=== PATIENT | female | born 1995 | race African-American/Black ===

== ENCOUNTER 2016-10-16 08:41 | Inpatient (IN) ==
[2016-10-16] MEDS ORDERED: BUTORPHANOL 2 MG/ML VIAL IV PRN (08:59)
[2016-10-16] MEDS ORDERED: ONDANSETRON 4 MG/2 ML VIAL IV PRN (08:59)
[2016-10-16] MEDS ORDERED: MEPERIDINE 50 MG/1 ML VIAL IV PRN (08:59)
[2016-10-16] MEDS ORDERED: AMPICILLIN INJ 2,000 MG in SODIUM CHLORIDE 0.9% 100 ML IV ONE (09:23)
[2016-10-16 09:27] LABS: Basophils % 0.2 % (0.0-0.8); Eosinophils % 0.8 % (0.00-10.9); Hematocrit 33.7 VOL% (35.7-47.0); Hemoglobin 10.6 GM/DL (12.0-16.0); Immature Granulocytes % 0.4 %; Immature Granulocytes Absolute 0.02 #; Lymphocytes # 1.5 10*3/uL (1.4-4.0); Lymphocytes % 29.9 % (21.3-54.2); Mean Corpuscular HGB Conc 31.5 GM/DL (32-36); Mean Corpuscular Hemoglobin 25 PG (27-34); Mean Corpuscular Volume 78.6 FL (87-102); Monocytes # 0.4 10*3/uL (0.11-0.8); Monocytes % 7.1 % (1.7-12.7); Neutrophils # 3.1 10*3/uL (1.4-7.4); Neutrophils % 61.6 % (38.7-73.9); Platelet Count 169 T/CUMM (130-400); Red Blood Count 4.29 MC/CUMM (3.8-5.5); Red Cell Distribution Width 14.4 % (9.3-17.3); White Blood Count 5.1 T/CUMM (4-12)
[2016-10-16] MEDS ORDERED: AMPICILLIN INJ 1,000 MG in SODIUM CHLORIDE 0.9% 100 ML IV SCH (09:30)
[2016-10-16] MEDS ORDERED: LACTATED RINGERS 1,000 ML IV SCH (09:30)
[2016-10-16] MEDS ORDERED: OXYTOCIN/LR 20 UNIT/1,000 ML BAG IV SCH (09:30)
[2016-10-16] MEDS ORDERED: LACTATED RINGERS 1,000 ML IV ONE (09:30)
--- NOTE | 2016-10-16 09:38 | OB/GYN History & Physical ---
History of Present Illness Chief complaint: Spontaneous rupture membranes at 34 weeks gestation History of present illness: Ms. Payne is a 20 year old female Patient with a known history of diabetes being treated with insulin therapy, and also labor with Procardia, who presents with spontaneous rupture membranes at 35 weeks gestation. Patient's physical exam demonstrated cervical dilatation at approximately 4 cm dilated. In light of these findings patient was placed on IV ampicillin, IV Pitocin, and also no desire for an epidural anesthetic. Risks and benefits were thoroughly discussed nursery has been notified. Home Medications Medication Instructions Recorded Confirmed Type Formula Tablet 1 tablet PO DAILY 08/28/15 10/08/16 History Insulin NPH [HumuLIN N] 10 units SUBCUT AC BREAKFAST 10/08/16 10/08/16 History Insulin NPH [HumuLIN N] 10 units SUBCUT AC SUPPER 10/08/16 10/08/16 History NIFEdipine CAP [Procardia] 1 capsule PO Q6HR 10/08/16 10/08/16 History Allergies Allergy/AdvReac Type Severity Reaction Status Date / Time No Known Allergies Allergy Verified 10/08/16 10:54 Medical,Surgical,& Family Hx - Medical History Endocrine: Comment Only: Diabetes Mellitus (IDDM) (gestational diabetic with both pregnancies) Reproductive: History of: Complication (gestational diabetes with last ) No history of: Ectopic - Family History Family History: Reports;: Family Diabetes (Mother, father, MGM), Family Hypertension (Mother, MGF) - Social History Smoking Status: Never smoker Exam CLINICAL RESEARCH SCIENTIST - Constitutional General appearance: no acute distress - Antepartum / Post Antepartum Exam Cervix -Dilatation: 4 cm, 70%, -2 station - Head Head exam: Present: normal inspection - Eye Eye exam: Present: EOMI Pupils: Present: DG - ENT ENT exam: Present: normal exam - Neck Neck exam: Present: normal inspection - Respiratory Respiratory exam: Present: clear to auscultation bilaterally - Breast Breasts: as per HPI Menstruation: as per HPI - Cardiovascular Cardiovascular exam: Present: regular rate and rhythm - GI/Abdominal GI/Abdominal exam: Present: normal bowel sounds - Extremities Exam Extremities exam: Present: normal inspection - Back Exam Back exam: Present: normal inspection - Neurological Exam Neurological exam: Present: alert, oriented X3 - Psychiatric Psychiatric exam: Present: normal affect - Skin Skin exam: Present: normal color Assessment and Plan (1) Premature rupture of membranes Status: Acute Assessment and plan: Insulin-dependent diabetic, premature rupture membranes, at 35 weeks gestation in active labor will plan on vaginal risks benefits were thoroughly discussed she is in full agreement Current Visit: No Results - Labs CBC & BMP: 10/16/16 09:20
[2016-10-16 11:17] LABS: Alanine Aminotransferase 12 U/L (13-56); Albumin 2.5 G/DL (3.4-5.0); Alkaline Phosphatase 146 U/L (45-117); Aspartate Amino Transferase 11 U/L (0-37); Bilirubin,Total < 0.39 MG/DL (0.2-1.0); Blood Urea Nitrogen 11 MG/DL (7-18); Calcium 8.7 MG/DL (8.5-10.1); Glucose 277 MG/DL (74-106); Potassium 4.2 MMOL/L (3.5-5.1); Sodium 136 MMOL/L (136-145); Total Protein 5.9 G/DL (6.4-8.3); Uric Acid 5.4 MG/DL (2.6-6.0)
[2016-10-16] MEDS ORDERED: INSULIN LISPRO 100 UNIT/ML SUBCUT PRN (12:37)
--- NOTE | 2016-10-16 14:13 | Event Note ---
HPI Ms. Payne is a 20-year-old that presented to the labor department with spontaneous rupture membranes at 35 weeks. In light of these findings the patient was admitted for management of early labor and rupture of membranes. Stage I: Patient was admitted she received IV fluids and IV Pitocin per protocol. She also received IV antibiotics prophylactically. She had an uneventful course of labor. Her blood sugars were monitored during labor due to diabetes. She maintained a CAT 1 tracing. The patient did not receive an epidural she only received IV pain medicines for pain control. Stage II: the patient was complete, the nares called the provider at 1339 and stated that the patient was complete prior to this report there was a report that the patient was 5 cm upon arrival to the hospital at 1345 the patient had already delivered with the nurse in attendance at 1343 a viable male . weight was 6 pounds and 12 ounces. Apgars were 9 at 1 minute and 9 at 5 minutes. A cord pH was obtained and sent to the lab. Stage III: A spontaneous delivery of a Earl placenta with a three-vessel cord noted. The placenta was further examined and appear to be grossly intact. The vagina cervix was inspected with no tears or lacerations noted, estimated blood loss was approximately 150 cc. The placenta was sent to pathology due to delivery, spontaneous rupture membranes, insulin dependent diabetes, and hypertension. At the time of dictation mother and baby are both in stable condition
[2016-10-16] MEDS ORDERED: MEASLES/MUMPS/RUBELLA VACCINE 0.5 ML VIAL SUBCUT ONE (14:14)
[2016-10-16] MEDS ORDERED: ACETAMINOPHEN 325 MG TABLET PO PRN (14:14)
[2016-10-16] MEDS ORDERED: OXYTOCIN/LR 20 UNIT/1,000 ML BAG IV ONE (14:14)
[2016-10-16] MEDS ORDERED: BENZOCAINE 20%/MENTHOL 0.5% SPRAY 56 GM CAN TOP PRN (14:14)
[2016-10-16] MEDS ORDERED: LANOLIN 50% CREAM 0.3 OZ TUBE TOP PRN (14:14)
[2016-10-16] MEDS ORDERED: BISACODYL 10 MG SUPP RECTAL PRN (14:14)
[2016-10-16] MEDS ORDERED: HYDROCORTISONE 2.5% RECTAL CREAM 30 GM TUBE TOP PRN (14:14)
[2016-10-16] MEDS ORDERED: WITCH HAZEL PADS 100/JAR TOP PRN (14:14)
[2016-10-16] MEDS ORDERED: RHO(D) IMMUNE GLOBULIN 300 MCG SYRINGE IM ONE (14:14)
[2016-10-16] MEDS ORDERED: DIPH/TET/ACEL PERT BOOSTER VACCINE 0.5 ML VIAL IM ONE (14:14)
[2016-10-16] MEDS ORDERED: ACETAMINOPHEN/CODEINE 300-30 MG TABLET PO PRN (14:16)
[2016-10-16] MEDS: oxyCODONE/ACETAMINOPHEN 5-325 MG TABLET PO PRN ×2 (16:28→22:21)
[2016-10-16] MEDS: IBUPROFEN 800 MG TABLET PO PRN ×2 (16:28→22:21)
[2016-10-16] MEDS ORDERED: DEXTROSE 50% 25 GM/50 ML VIAL IV PRN (17:32)
[2016-10-16] MEDS ORDERED: GLUCAGON 1 MG VIAL IM PRN (17:32)
[2016-10-16] MEDS: INSULIN NPH 100 UNIT/ML SUBCUT SCH (17:44)
[2016-10-16] MEDS: INSULIN REGULAR 100 UNIT/ML SUBCUT SCH (20:09)
[2016-10-16] MEDS: DOCUSATE SODIUM 100 MG CAPSULE PO SCH (22:00)
[2016-10-17 06:22] LABS: Basophils % 0.2 % (0.0-0.8); Eosinophils # 0.1 10*3/uL (0.0-0.87); Eosinophils % 0.7 % (0.00-10.9); Hematocrit 32.4 VOL% (35.7-47.0); Immature Granulocytes % 0.6 %; Immature Granulocytes Absolute 0.05 #; Lymphocytes # 2.3 10*3/uL (1.4-4.0); Lymphocytes % 25.8 % (21.3-54.2); Mean Corpuscular HGB Conc 30.9 GM/DL (32-36); Mean Corpuscular Hemoglobin 25 PG (27-34); Mean Corpuscular Volume 79.4 FL (87-102); Mean Platelet Volume 11.3 FL (9.6-12.0); Monocytes # 0.7 10*3/uL (0.11-0.8); Monocytes % 7.7 % (1.7-12.7); Neutrophils # 5.9 10*3/uL (1.4-7.4); Platelet Count 158 T/CUMM (130-400); Red Blood Count 4.08 MC/CUMM (3.8-5.5); Red Cell Distribution Width 14.3 % (9.3-17.3); White Blood Count 9.1 T/CUMM (4-12)
[2016-10-17] MEDS: DOCUSATE SODIUM 100 MG CAPSULE PO SCH ×2 (09:01→20:35)
[2016-10-17] MEDS: INSULIN NPH 100 UNIT/ML SUBCUT SCH ×2 (09:01→16:44)
[2016-10-17] MEDS: IBUPROFEN 800 MG TABLET PO PRN (09:01)
[2016-10-17] MEDS: INSULIN REGULAR 100 UNIT/ML SUBCUT SCH ×3 (09:01→15:54)
[2016-10-17] MEDS: oxyCODONE/ACETAMINOPHEN 5-325 MG TABLET PO PRN (09:02)
--- NOTE | 2016-10-17 16:02 | OB/GYN Progress Note ---
Assessment and Plan (1) Premature rupture of membranes Status: Acute Current Visit: No (2) delivery Status: Acute Assessment and plan: Initiate routine orders. 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 Bonding well with . 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 - Constitutional Vitals: Vital Signs Temp Pulse Resp BP Pulse Ox 10/17/16 15:56 97.2 F L 75 19 113/71 98 10/17/16 12:00 98.1 F 98 H 18 126/84 99 10/17/16 07:33 98.0 F 74 17 101/60 98 10/17/16 06:00 20 10/17/16 04:00 97.2 F L 88 18 108/67 99 10/17/16 01:42 20 10/17/16 00:00 96.4 F L 59 L 18 108/65 99 10/16/16 20:00 96.4 F L 59 L 18 108/65 99 10/16/16 18:30 65 20 129/77 98 10/16/16 18:00 20 10/16/16 17:30 77 20 124/71 98 10/16/16 16:30 59 L 18 122/77 98 General appearance: no acute distress - Head Head exam: Present: normal inspection - Respiratory Respiratory exam: Present: clear to auscultation bilaterally - Cardiovascular Cardiovascular exam: Present: regular rate and rhythm - GI/Abdominal GI/Abdominal exam: Present: normal bowel sounds, soft - Extremities Exam Extremities exam: Present: normal inspection - Neurological Exam Neurological exam: Present: alert, oriented X3 - Psychiatric Psychiatric exam: Present: normal affect, normal mood - Skin Skin exam: Present: normal color, warm Results - Labs CBC & BMP: 10/17/16 06:06 10/16/16 Unknown
--- NOTE | 2016-10-17 16:04 | Discharge Summary ---
Hospital Course - Hospital Course Hospital Course: Ms. Payne is a 20-year-old female who presented to labor department in active labor with spontaneous rupture membranes. She subsequently delivered a viable infant with no complications. She has followed a normal course and she has done well. Her bleeding is minimal with no odor. Her vital signs and lab values are stable. Her blood sugars are stable. She is bonding well with her . Her perineum is intact with no edema. Fundus is firm and midline. She denies any pain in the back of her legs. She will be discharged home with prescriptions for pain and a follow-up appointment in our office. Diagnosis - Discharge Diagnosis (1) Premature rupture of membranes Status: Acute (2) delivery Status: Acute Specialty Discharge - Follow Up or Referrals Follow up with: Donnell Johnson MD [Physician] - (follow up in 6 weeks) Discharge Plan - Discharge Data Disposition: Disch To Home/Self Care Condition at Discharge: Stable Discharge Diet: advance to your usual diet, regular diet Activity: resume usual activities as tolerated Hygiene: may shower Weight Bearing at Discharge: weight bear as tolerated Driving: no restrictions Contact your physician if you experience:: fever over 101, pain uncontrolled by pain medications - Discharge Medications New Ibuprofen Tab [Motrin Tab] 800 mg PO Q6H PRN #30 tablet PRN Reason: Pain Moderate (4-7) Insulin NPH [HumuLIN N] 10 unit SUBCUT AC BREAKFAST unit Insulin NPH [HumuLIN N] 10 unit SUBCUT AC SUPPER unit Acetamin/Codeine 300-30 Tab [Tylenol/Codeine #3] 2 tablet PO Q4H PRN #30 tablet PRN Reason: Pain Mild (1-3) No Action Formula Tablet 1 tablet PO DAILY Insulin NPH [HumuLIN N] 10 units SUBCUT AC BREAKFAST NIFEdipine CAP [Procardia] 1 capsule PO Q6HR Insulin NPH [HumuLIN N] 10 units SUBCUT AC SUPPER - Follow Up or Referral - Forms/Instructions Exam - Constitutional Vitals: Period Temp Pulse Resp BP Sys/Fragoso Pulse Ox Last 24 Hr 96.4 F-98.1 F 59-98 17-20 101-129/60-84 98-99 General appearance: no acute distress - Head Head exam: Present: normal inspection - Respiratory Respiratory exam: Present: clear to auscultation bilaterally - Cardiovascular Cardiovascular exam: Present: regular rate and rhythm - GI/Abdominal GI/Abdominal exam: Present: normal bowel sounds, soft - Extremities Exam Extremities exam: Present: normal inspection - Neurological Exam Neurological exam: Present: alert, oriented X3 - Psychiatric Psychiatric exam: Present: normal affect, normal mood - Skin Skin exam: Present: normal color, warm Discharge Results Labs on day of discharge: Labs from last 24 hours 10/17/16 10/17/16 10/17/16 15:50 10:33 07:20 WBC RBC Hgb Hct MCV MCH MCHC RDW Plt Count MPV Neut % (Auto) Lymph % (Auto) [place] % (Auto) Eos % (Auto) Baso % (Auto) Neut # (Auto) Lymph # (Auto) [place] # (Auto) Eos # (Auto) Baso # (Auto) Immature Gran % Nucleated RBC % Immature Gran # Nucleated RBCs # POC Glucose 85 181 H 79 10/17/16 10/16/16 06:06 19:42 WBC 9.1 D RBC 4.08 Hgb 10.0 L Hct 32.4 L MCV 79.4 L MCH 25 L MCHC 30.9 L RDW 14.3 Plt Count 158 MPV 11.3 Neut % (Auto) 65.0 Lymph % (Auto) 25.8 [place] % (Auto) 7.7 Eos % (Auto) 0.7 Baso % (Auto) 0.2 Neut # (Auto) 5.9 Lymph # (Auto) 2.3 [place] # (Auto) 0.7 Eos # (Auto) 0.1 Baso # (Auto) 0.0 Immature Gran % 0.6 Nucleated RBC % 0.0 Immature Gran # 0.05 Nucleated RBCs # 0.00 POC Glucose 323 H DS: Provider Date of admission: 10/16/16 09:00 Primary care physician: Conner Taylor Attending physician on admission: Donnell Johnson MD Consults: 10/16/16 09:00 Consult to Anesthesiology [CONS] Routine Consulting Provider: Reason for Anesthesiology: Epidural Consult Comment: Epidural for pain managment 10/16/16 14:14 Consult to Table Assembler Metal [CONS] Routine Consult Table Assembler Metal: Breast Feeding Discharging clinician: Nayana Cherry CNM Expected date of discharge: 10/18/16
[2016-10-18] MEDS: INSULIN REGULAR 100 UNIT/ML SUBCUT SCH ×2 (00:08→08:17)
[2016-10-18] MEDS: oxyCODONE/ACETAMINOPHEN 5-325 MG TABLET PO PRN ×2 (00:18→07:46)
[2016-10-18] MEDS: IBUPROFEN 800 MG TABLET PO PRN ×2 (00:19→07:42)
[2016-10-18 07:51] VITALS: BP 135/86
[2016-10-18] MEDS: DOCUSATE SODIUM 100 MG CAPSULE PO SCH (08:16)
[2016-10-18] MEDS: INSULIN NPH 100 UNIT/ML SUBCUT SCH (08:16)
--- NOTE | 2016-10-20 11:21 | Pathology Report from [facility] ---
ACCESSION # : [id number] PATIENT NAME : Leif Payne ORDERING DR : JEFRY NEWMAN MD CLINICAL HX: IUP @ 35-07/22 week - PROM - IDDM POST-OP DX: Same SPECIMEN INFO: Placenta GROSS DESCRIPTION: The jameyicmen is received fresh labeled 'LEIF PAYNE/ PLACENTA". The specimen consists of a 684 gm placenta measuring 15.9 x 17.7 x 3.3 cm. The membranes are slightly thickened, opaque, purplish-myers with clotted blood present. The umbilical cord measures 17.5 cm, contains three vessels and is eccentrically inserted. The surface is blue-cunha with a 10.5 x 5.0 cm area of sub chorionic fibrin. The maternal surface is hemorrhagic with clotted blood and focal area of fibrin present. No gross abnormalities upon sectioning seen. Hat Designer sections submitted: (A) membranes and cord, (B) and maternal surfaces. DIAGNOSIS FOR LEIF PAYNE: Three vessel umbilical cord.Unremarkable placental membranes.High placental weight placenta (684 grams) with unremarkable third trimester placental chorionic villi. SERVICE DATE: 10/17/2016 REPORT DATE: 10/20/2016 PATHOLOGIST: Raul Montelongo M.D. [facility]
== END 2016-10-18 12:34 | disposition home or self-care (01) | DRG 560 ==
LOC: N.LDOUT 08:41 → N.LD 08:43 → N.OB 15:26
PROVIDERS: ADMIT Obstetrics & Gynecology; ATTEND Obstetrics & Gynecology

== ENCOUNTER 2017-12-22 01:53 | Inpatient (IN) ==
[2017-12-24 07:17] VITALS: BP 107/65
== END 2017-12-24 12:25 | disposition home or self-care (01) | DRG 560 ==
LOC: N.LDOUT 01:53 → N.LD 01:55 → N.OB 10:04
PROVIDERS: ADMIT Obstetrics & Gynecology; ATTEND Obstetrics & Gynecology